=== PATIENT | male | born 1950 | race Two or more races ===

== ENCOUNTER 2020-04-10 11:45 | Outpatient (CLI) | payer OTHER ==
[~2020-04-10 11:45] MED LIST: Coreg PO; NORVASC 5MG TAB PO; VERAPAMIL ER240 MG
[2020-04-11] MEDS ORDERED: METFORMIN HCL500 M3 (07:32)
[2020-04-11] MEDS ORDERED: ZESTRIL10 M1 (07:34)
[2020-04-11] MEDS ORDERED: GLIPIZIDE10 MG PO (07:36)
[2020-04-11] MEDS ORDERED: ZESTRIL10 M1 PO (07:36)
[2020-04-11] MEDS ORDERED: HYDROCHLOROTH12.5 MG PO (07:37)
== END 2020-04-10 11:51 | disposition home or self-care (01) ==
LOC: LAB 11:45
PROVIDERS: ATTEND Specialist
DX: Z20.828 Contact with and (suspected) exposure to other viral communicable diseases (principal)

== ENCOUNTER 2020-04-11 07:21 | Inpatient (IN) | payer OTHER ==
[~2020-04-11] VITALS: Ht 182.9 cm; Wt 95.3 kg
[2020-04-11] MEDS ORDERED: METFORMIN HCL500 M3 (07:32)
[2020-04-11] MEDS ORDERED: ZESTRIL10 M1 (07:34)
[2020-04-11] MEDS ORDERED: ZESTRIL10 M1 PO (07:36)
[2020-04-11] MEDS ORDERED: GLIPIZIDE10 MG PO (07:36)
[2020-04-11] MEDS ORDERED: HYDROCHLOROTH12.5 MG PO (07:37)
[2020-04-14] MEDS ORDERED: CARVEDILOL6.25 MG PO (11:00)
[2020-04-14] MEDS ORDERED: NORVASC5 MG PO (11:00)
== END 2020-04-27 15:41 | disposition expired | DRG 207 ==
LOC: ER 07:21 → MEDJ 21:43 → ICU 04-17 23:02
PROVIDERS: ADMIT Internal Medicine; ATTEND Internal Medicine
PROC: 8E0ZXY6 Isolation (ICD-10-PCS; 2020-04-11)
PROC: CB2YYZZ Tomographic (Tomo) Nuclear Medicine Imaging of Respiratory System using Other Radionuclide (ICD-10-PCS; 2020-04-11)
PROC: 4A12X4Z Monitoring of Cardiac Electrical Activity, External Approach (ICD-10-PCS; 2020-04-12)
PROC: 0D9670Z Drainage of Stomach with Drainage Device, Via Natural or Artificial Opening (ICD-10-PCS; 2020-04-12)
PROC: B24BZZZ Ultrasonography of Heart with Aorta (ICD-10-PCS; 2020-04-13)
PROC: 5A1955Z Respiratory Ventilation, Greater than 96 Consecutive Hours (ICD-10-PCS; principal; 2020-04-17)
PROC: 0BH17EZ Insertion of Endotracheal Airway into Trachea, Via Natural or Artificial Opening (ICD-10-PCS; 2020-04-17)
PROC: 3E0F7SF Introduction of Other Gas into Respiratory Tract, Via Natural or Artificial Opening (ICD-10-PCS; 2020-04-23)
PROC: 4A033R1 Measurement of Arterial Saturation, Peripheral, Percutaneous Approach (ICD-10-PCS; 2020-04-23)
DX: U07.1 COVID-19 (principal); J12.89 Other viral pneumonia; J96.01 Acute respiratory failure with hypoxia; A41.9 Sepsis, unspecified organism; R65.21 Severe sepsis with septic shock; K92.0 Hematemesis; N17.8 Other acute kidney failure; R18.8 Other ascites; E11.649 Type 2 diabetes mellitus with hypoglycemia without coma; I11.0 Hypertensive heart disease with heart failure; I50.9 Heart failure, unspecified; J43.9 Emphysema, unspecified; J84.10 Pulmonary fibrosis, unspecified; E87.5 Hyperkalemia; Z91.19 Patient's noncompliance with other medical treatment and regimen